=== PATIENT | male | born 1970 | race Caucasian/White ===

== ENCOUNTER 2017-09-18 07:04 | Emergency (ER) | payer SELFPAY ==
[~2017-09-18] VITALS: Ht 188 cm; Wt 95.0 kg
[2017-09-18 07:18] VITALS: BP 142/85; PULSE 75; RESP 16; TEMP 98.3; O2SAT 97
[2017-09-18] MEDS ORDERED: LIDOCAINE HCL 1% PF 30 ML VIAL INFIL ONE (07:30)
[2017-09-18] MEDS ORDERED: TETANUS/DIPHTHERIA TOXOID ADULT 0.5 ML VIAL IM ONE (07:45)
--- NOTE | 2017-09-18 08:11 | PD ---
HPI Chief Complaint: Laceration/Skin Injury Time Seen by Provider: 07:23 Travel History International Travel<30 days: No Contact w/Intl Traveler<30days: No Traveled to known affect area: No History of Present Illness HPI 47-year-old male presents to the emergency room for evaluation of laceration to his right arm that occurred just prior to arrival. Patient fell out of the shower and hit his arm on a ceramic trashcan that broke and cut him. He denies any other injuries. He denies hitting his head or loss of consciousness. He applied pressure and then came to the emergency room. Unknown last tetanus. He denies significant pain, loss of range of motion, or paresthesias. No chronic medical conditions or daily medications. He is not on blood thinners. [facility] Social History Alcohol Use: No Tobacco Use: No Substance Use: No Allergies-Medications (Allergen,Severity, Reaction): Coded Allergies: No Known Allergies (Unverified , 09/18/17) Review of Systems Except as stated in HPI: all other systems reviewed are Neg Physical Exam Narrative GENERAL: Well-nourished, well-developed male in no acute distress. Afebrile. Ambulatory. SKIN: Focused skin assessment warm/dry. There is a 4 cm deep laceration to the right posterior arm. There is a 1 cm L-shaped skin flap about 2 cm lateral to the first laceration. Moderate bleeding. No neurovascular injury. HEAD: Normocephalic. EYES: No scleral icterus. No injection or drainage. NECK: Supple, trachea midline. No JVD or lymphadenopathy. CARDIOVASCULAR: Regular rate and rhythm without murmurs, gallops, or rubs. RESPIRATORY: Breath sounds equal bilaterally. No accessory muscle use. PSYCHIATRIC: No delusional thought processes. No hallucinations. Data Data Last Documented VS Vital Signs Date Time Temp Pulse Resp B/P (MAP) Pulse Ox O2 Delivery O2 Flow Rate FiO2 09/18/17 07:18 98.3 75 16 142/85 (104) 97 Orders Orders Lidocaine Pf 1% Inj (Xylocaine-Mpf 1% In (09/18/17 07:30) Tetanus/Diphtheria Tox Adult (Tetanus/Di (09/18/17 07:45) MDM Medical Decision Making Medical Screen Exam Complete: Yes Emergency Medical Condition: Yes Medical Record Reviewed: Yes Differential Diagnosis Laceration, contusion, abrasion Narrative Course 47-year-old male presents to the emergency room for evaluation of laceration to his right arm that occurred just prior to arrival. He cut himself on ceramic. Denies any other injuries. There is a 4 cm deep laceration to the right posterior arm. There is a 1 cm L-shaped skin flap about 2 cm lateral to the first laceration. Wound was thoroughly cleansed and then repaired, see procedure note for details. Patient discharged with wound care instructions and told to follow-up with primary care physician or return for worsening symptoms. He understands and agrees to plan. Procedures Procedure Narrative LACERATION LOCATION: Right posterior arm LENGTH: 4 cm NUMBER OF STITCHES/DANO: 6 simple interrupted, 2 buried REPAIR: The area of the laceration was prepped with Betadine and sterilely draped. The laceration was infiltrated with 1% lidocaine. The wound was copiously irrigated and explored without evidence of foreign body, tendon injury or neurovascular injury. The wound was closed using 5-0 Vicryl and 5-0 Prolene. This was a double layer repair. A sterile dressing was applied. The patient was advised to keep the dressing clean and dry. Patient tolerated the procedure well. Diagnosis Primary Impression: Laceration of right upper arm Qualified Codes: S41.111A - Laceration without foreign body of right upper arm , initial encounter Referrals: Primary Care Physician Additional Instructions: Keep your wound clean and dry. Apply triple antibiotic ointment daily. Stitches out in 10 days. Follow-up with a primary care physician. Return to the emergency room for worsening symptoms. Disposition: 01 DISCHARGE HOME Condition: Stable Francoise Dougherty Sep 18, 2017 08:11
== END 2017-09-18 08:30 | disposition home or self-care (01) ==
LOC: NEPD 07:04
DX: S41.111A Laceration without foreign body of right upper arm, initial encounter (principal); W18.30XA Fall on same level, unspecified, initial encounter
CPT/HCPCS: 12032